=== PATIENT | male | born 1980 | race Caucasian/White ===

== ENCOUNTER 2017-03-03 16:27 | Emergency (ER) | payer SELFPAY ==
[~2017-03-03] VITALS: Ht 167.6 cm; Wt 120.0 kg
[~2017-03-03 16:27] MED LIST: LORTAB 7.5 OR
[2017-03-03] MEDS ORDERED: NAPROSYN500 MG PO (17:29)
[2017-03-03 17:49] VITALS: BP 136/80
== END 2017-03-03 17:49 | disposition home or self-care (01) | DRG 605 ==
LOC: ED 16:27
DX: S20.211A Contusion of right front wall of thorax, initial encounter (principal); J45.909 Unspecified asthma, uncomplicated; W55.29XA Other contact with cow, initial encounter; Y92.009 Unspecified place in unspecified non-institutional (private) residence as the place of occurrence of the external cause